=== PATIENT | male | born 1990 | race African-American/Black ===

== ENCOUNTER 2018-09-13 06:41 | Outpatient (CLI) | payer OTHER ==
[~2018-09-13] VITALS: Ht 182.9 cm; Wt 98.9 kg
[2018-09-13 07:14] VITALS: BP 163/97; Ht 182.9 cm; Wt 98.9 kg
[2018-09-13 08:03] LABS: HEMATOCRIT 34.5 % (42.0-54.0); HEMOGLOBIN 11.6 g/dL (13.5-17.5); MCH 28.1 pg (26.0-34.0); MCHC 33.6 g/dL (31.0-37.0); MCV 83.5 fL (80.0-100.0); RBC 4.13 10x6/uL (4.20-6.10); RDW 13.2 % (11.5-14.5)
[2018-09-13 08:08] LABS: CALC OSMOLALITY 279 mosm/kg (275-300); CALCIUM 8.3 mg/dL (8.5-10.1); CHLORIDE - SERUM 106 mmol/L (98-107); CREATININE - SERUM 0.8 mg/dL (0.6-1.3); GLUCOSE 101 mg/dL (74-106); POTASSIUM - SERUM 3.5 mmol/L (3.5-5.1); SODIUM 140 mmol/L (136-145); UREA NITROGEN 15 mg/dL (7-18); eGFR NON AFRICAN AMERICAN > 90 mL/min (90-120)
--- NOTE | 2018-09-13 09:57 | NUR ---
DR. ESCOBAR CANCELLED PROCEDURE. A/C BROKEN AND HUMIDITY HIGH.
== END 2018-09-13 10:02 | disposition home or self-care (01) ==
LOC: D.OPS 06:41 → EDSTATUS 11:00 → D.OPS 11:00
PROVIDERS: Anesthesiology; ATTEND Surgery
DX: K40.90 Unilateral inguinal hernia, without obstruction or gangrene, not specified as recurrent (principal)

== ENCOUNTER 2018-10-20 05:10 | Day surgery (SDC) | payer OTHER ==
[~2018-10-20] VITALS: Ht 182.9 cm; Wt 110.5 kg
--- NOTE | ~2018-10-20 | OP ---
PATIENT NAME: CELI COKER MEDICAL RECORD: [id number] LOCATION:D[facility] ADMISSION DATE: SURGEON: CORINNE ESCOBAR MD DATE OF OPERATION: 10/20/2018 PREOPERATIVE DIAGNOSIS: Symptomatic right inguinal hernia. POSTOPERATIVE DIAGNOSIS: Symptomatic indirect right inguinal hernia. PROCEDURES: Open right indirect inguinal herniorrhaphy with bilayered preperitoneal polypropylene mesh. SURGEON: Corinne Escobar MD DIRECTOR DRUG: None. BLOOD LOSS: Minimal. ANESTHESIA: General. COMPLICATIONS: None. The risks, possible complications, and alternatives to the procedure were explained to the patient. He elects to proceed. The discussion specifically included, but was not limited to, bleeding requiring an emergency reoperation and infection, the fact that mesh would be used. We discussed injury to the testicular artery and vein and the possible need for orchiectomy. OPERATIVE COURSE: The patient was conveyed to the operating room electively on 10/20/2018. General anesthesia was induced by the anesthesia staff. The abdomen and genitals were sterilely prepped and draped. An incision was accomplished in the right groin. Sharp dissection was carried down through skin and subcutaneous tissue and Katie's fascia. The external oblique aponeurosis was then sharply cleaned of overlying connective tissue. The external oblique aponeurosis was then incised along the direction of its fibers. I bluntly dissected down through the internal oblique and transverse abdominis muscles. A preperitoneal pocket was fashioned bluntly. An indirect hernia sac was reduced in its entirety. I entered the hernia sac. There was a sliding component to the hernia. Above this sliding component, I ligated the sac highly. I then transected the sac distal to this. I then cut 2 ovals out of a polypropylene mesh. I sutured the 2 ovals one on top of the other with a running #1 Surgidac. The mesh was then placed in the preperitoneal space. Once I was satisfied with placement of the mesh, I allowed the internal oblique and transversus abdominis muscles to come together and these were sutured together with a horizontal mattress 0 Surgidac incorporating a portion of the mesh with the suture. The external oblique aponeurosis was closed with running #1 Vicryls. Katie fascia was closed with interrupted 3-0 Vicryls. The subdermis was closed with interrupted 3-0 Vicryls. The skin was closed with a running intracuticular 3-0 Vicryl. Benzoin and Steri-Strips were applied. OPERATIVE REPORT [id number] CELI COKER The patient was then extubated and conveyed to the post-anesthesia care unit where he was in stable condition. He will be dismissed home on [place] as well as [place]. There is no need for him to follow up with me in the office unless he develops a complication related to this operative procedure. If he does need followup I can see him out at the [facility] unit on the GI clinic day. The patient states that [place] he [place] very hot and is about 90 degrees and he is requesting to be placed in the [facility] where things are cooler. TRANSINT:[id number] Voice Confirmation ID: [id number] DOCUMENT ID: [id number] CORINNE ESCOBAR MD CC: SHAMIR MCDERMOTT [id number] DICTATION DATE: 10/20/18 1244 [employer] OPERATOR: 10/20/18 [address] [facility] [place] 10/20/18 [facility] [address] [place] [address]
[2018-10-20 05:47] LABS: HEMATOCRIT 39.8 % (42.0-54.0); HEMOGLOBIN 13.3 g/dL (13.5-17.5); MCH 28.5 pg (26.0-34.0); MCHC 33.4 g/dL (31.0-37.0); MCV 85.4 fL (80.0-100.0); MEAN PLATELET VOLUME 9.2 fL (7.4-10.4); RBC 4.66 10x6/uL (4.20-6.10); RDW 13.3 % (11.5-14.5); WBC 6.6 10x3/uL (4.8-10.8)
[2018-10-20 06:10] LABS: CALC OSMOLALITY 283 mosm/kg (275-300); CALCIUM 8.8 mg/dL (8.5-10.1); CARBON DIOXIDE 29.7 mmol/L (21.0-32.0); CHLORIDE - SERUM 105 mmol/L (98-107); GLUCOSE 95 mg/dL (74-106); POTASSIUM - SERUM 4.1 mmol/L (3.5-5.1); SODIUM 142 mmol/L (136-145); UREA NITROGEN 16 mg/dL (7-18); eGFR NON AFRICAN AMERICAN > 90 mL/min (90-120)
[2018-10-20 06:59] VITALS: BP 147/82; Ht 182.9 cm; Wt 110.5 kg
--- NOTE | 2018-10-20 11:55 | NUR ---
ASSUMED PATIENT CARE. FL FABIENNE BROUGHT TO PATIENT. [facility]ICERS AT BEDSIDE. PAGE DR ESCOBAR FOR DC ORDERS.
--- NOTE | 2018-10-20 12:15 | NUR ---
AMBULATED TO THE BATHROOM AND VOIDED. BACK TO BED. ICE PACK GIVEN TO PATIENT. PUDDING AND JUCE BROUGHT TO PATIENT.
--- NOTE | 2018-10-20 12:40 | NUR ---
SPOKE WITH DR YOUNGBLOOD REGARDING PATIENT REQUEST FOR ORDER FOR [facility] OBSERVATION. RELATED IT WILL BE IN HIS DICTATION TO BE SENT WITH [facility]ICERS.
--- NOTE | 2018-10-20 12:45 | NUR ---
IV DC'D WITH CATHETER INTACT.
--- NOTE | 2018-10-20 13:20 | NUR ---
WRITTEN AND VERBAL DC INST. GIVEN TO [facility] ALONG WITH RX. DC'D TO [facility] FACILITY VIA FACILITY VEHICLE. STABLE AT TIME OF DC.
== END 2018-10-20 13:20 | disposition home or self-care (01) ==
LOC: D.OPS 05:10
PROVIDERS: Anesthesiology; ATTEND Surgery
DX: K40.90 Unilateral inguinal hernia, without obstruction or gangrene, not specified as recurrent (principal)